=== PATIENT | female | born 1970 | race African-American/Black ===

== ENCOUNTER 2016-08-29 22:16 | Observation (INO) | payer BC ==
[2016-08-29] MEDS ORDERED: ONDANSETRON HCL IV 4 MG/2 ML VIAL IVP ONE (22:44)
[2016-08-29] MEDS ORDERED: MORPHINE SULFATE 5 MG/ML PFS IVP ONE (22:44)
[2016-08-29] MEDS ORDERED: 0.9 % SODIUM CHLORIDE 1000ML 1,000 ML IV SCH (22:45)
--- NOTE | 2016-08-29 22:49 | Emergency Department Record ---
History of Present Illness - General Chief complaint: Pain Stated complaint: BRUISED RIBS Time Seen by Provider: 08/29/16 22:43 Source: Patient Mode of Arrival: Ambulatory Limitations: No limitations - History of Present Illness Initial comments: 46 yo female presents to ED with a CC of left sided "rib pain" that began last night. Patient believes that she "bruised her rib", but denies any injury. Patient denies fevers, chills, or cough symptoms. Patient does report recent left foot surgery 1 weeks ago, denies calf pain or swelling. Patient was seen by both [facility] and PCP today, diagnosed with shingles and possible bruised rib. Patient denies health problems at her baseline. Onset/Timin -: Days(s) Location: Left, Other Severity scale (1-10): 9 Quality: Sharp Consistency: Intermittent Worsens with: Exertion, Walking - Related Data Home Medications Medication Instructions Recorded Confirmed Last Taken Ibuprofen [Motrin 600Mg] 600 mg PO Q6H 08/29/16 08/29/16 08/29/16 19:00 Lisinopril/Hydrochlorothiazide 1 each PO DAILY 08/29/16 08/30/16 1 Day Ago [Lisinopril-Hctz 20-25 mg Tab] Phentermine HCl [Adipex-P] 37.5 mg PO DAILY 08/29/16 08/30/16 5 Days Ago 37.5mg Allergies Allergy/AdvReac Type Severity Reaction Status Date / Time No Known Drug Allergies Allergy Verified 08/29/16 22:41 Travel Screening - Travel/Exposure Within Last 30 Days Have you traveled within the last 30 days?: No Review of Systems Constitutional: Denies: Chills, Fever, Malaise, Night sweats Eyes: Denies: Eye discharge, Eye pain ENT: Denies: Congestion, Ear pain, Epistaxis Respiratory: Denies: Cough, Dyspnea Cardiovascular: Reports: Chest pain. Denies: Dyspnea on exertion, Palpitations , Paroxysmal nocturnal dyspnea Endocrine: Denies: Fatigue, Heat or cold intolerance Gastrointestinal: Denies: Abdominal pain, Nausea, Vomiting Genitourinary: Denies: Dysuria, Frequency Musculoskeletal: Denies: Arthralgia, Back pain, Gout, Joint swelling, Neck pain Skin: Denies: Bruising, Change in color, Change in hair/nails Neurological: Denies: Abnormal gait, Confusion, Headache, Seizure Psychiatric: Denies: Anxiety Hematological/Lymphatic: Denies: Anemia, Blood Clots Past Medical History - SOCIAL HISTORY Smoking Status: Never smoker Alcohol Use: None Drug Use: None - RESPIRATORY Hx Respiratory Disorders: No - CARDIOVASCULAR Hx Cardio Disorders: Yes Hx Hypertension: Yes - NEURO Hx Neuro Disorders: No - GI Hx GI Disorders: No - Hx Genitourinary Disorders: No - ENDOCRINE Hx Endocrine Disorders: No - MUSCULOSKELETAL Hx Musculoskeletal Disorders: No - PSYCH Hx Psych Problems: No - HEMATOLOGY/ONCOLOGY Hx Hematology/Oncology Disorders: No Family Medical History Any Significant Family History?: Yes Hx Diabetes: Father, Mother, Brother/Sister Hx Heart Disease: Brother/Sister Hx Kidney Disease: Father Physical Exam - General General Appearance: Alert, Oriented x3, Cooperative, No acute distress Limitations: No limitations - Head Head exam: Atraumatic, Normocephalic, Normal inspection Head exam detail: negative: Abrasion, Contusion, Brasher's sign, General tenderness, Hematoma, Laceration - Eye Eye exam: Normal appearance. negative: Conjunctival injection, Periorbital swelling, Periorbital tenderness, Scleral icterus - ENT Ear exam: negative: Auricular hematoma, Auricular trauma Nasal Exam: negative: Active bleeding, Discharge, Dried blood, Foreign body Mouth exam: negative: Drooling, Laceration, Muffled voice, Tongue elevation - Neck Neck exam: negative: Meningismus, Tenderness - Respiratory Respiratory exam: Normal lung sounds bilaterally, Chest wall tenderness (left lateral ribs), Other (Patient is tender on examination to the left lateral ribs , reports pain with trucal movement and depp inspiration). negative: Rales, Respiratory distress, Rhonchi, Stridor - Cardiovascular Cardiovascular Exam: Regular rate, Normal rhythm, Normal heart sounds - GI/Abdominal GI/Abdominal exam: Soft. negative: Rebound, Rigid, Tenderness - Rectal Rectal exam: Deferred - exam: Deferred - Extremities Extremities exam: Normal inspection. negative: Calf tenderness, Pedal edema, Tenderness - Back Back exam: Reports: Normal inspection. Denies: CVA tenderness (R), CVA tenderness (L) - Neurological Neurological exam: Alert, Normal gait, Oriented X3 - Psychiatric Psychiatric exam: Normal affect, Normal mood - Skin Skin exam: Normal color. negative: Abrasion Type of lesion: negative: abrasion Course Vital Signs 08/29/16 22:22 Temperature 98.1 F Pulse Rate [ 99 H Pulse Ox Probe] Respiratory 20 Rate Blood Pressure 140/109 [Right Arm] Pulse Ox 97 - Reevaluation(s) Reevaluation #1: 08/29/16 22:54 EKG: NSR 82, normal axis, normal intervals T wave inversion III, otherwise no acute ST-T wave changes are present. Reevaluation #2: 08/29/16 23:40 WBC 16.1, labs are otherwise grossly unremarkable for an acute process. Reevaluation #3: 08/30/16 00:38 CT Chest: Small amount pleural effusion, small pericardial effusion, 3.5 cm breast mass vs. cyst. Patient was updated on all results, will admit for 2-D echo in the morning and trend Troponin. Discussed breast lesion with the patient, reports that she [id number] mammography 2 years ago that demonstrated a small cyst, understands the need for repeat mammography to further evaluate her breast lesion. Reevaluation #4: 08/30/16 06:47 Case was discussed with Dr. Velásquez, will accept admission. Medical Decision Making - Lab Data Result diagrams: 08/29/16 23:00 08/29/16 23:00 Disposition Disposition: Admit Clinical Impression: Pericardial effusion, Pleural effusion Chest pain Qualifiers: Chest pain type: unspecified Qualified Code(s): R07.9 - Chest pain, unspecified Leukocytosis Qualifiers: Leukocytosis type: unspecified Qualified Code(s): D72.829 - Elevated white blood cell count, unspecified Disposition: Still a Patient at [facility] Decision to Admit: Admit from ER Decision to Admit Date: 08/30/16 Decision to Admit Time: 00:42 Condition: (1) Good Time of Disposition: 00:42
[2016-08-29 23:08] LABS: BASO % 0.2 % (0-6); EOS % 1.1 % (0-6); HEMATOCRIT 38.8 % (35.0-47.0); HEMOGLOBIN 12.8 gm/dl (11.6-16.0); LYMPH % 14.2 % (16-45); MEAN CELL VOLUME 91.5 fl (81-97); MEAN CORPUSCULAR HEMOGLOBIN 30.2 pg (27-33); MEAN PLATELET VOLUME 10.8 fl (7.4-10.4); MONO % 6.5 % (0-9); PLATELET COUNT 358 K/uL (130-400); RED BLOOD COUNT 4.24 M/uL (3.80-5.40); RED CELL DISTRIBUTION WIDTH 14.2 % (11.5-14.5); WHITE BLOOD COUNT W/O DIFF 16.1 K/uL (4.2-12.2)
[2016-08-29 23:19] LABS: ALB/GLOB RATIO 1.1 (1.1-1.8); ALBUMIN 4.1 gm/dL (3.5-5.0); ALKALINE PHOSPHATASE 85 U/L (38-126); ALT/SGPT 32 U/L (9-52); ANION GAP 16.3 (7-16); AST/SGOT 20 U/L (14-36); BILIRUBIN,TOTAL 0.25 mg/dL (0.2-1.3); BLOOD UREA NITROGEN 21 mg/dL (7-17); CARBON DIOXIDE 28.7 mmol/L (22-30); CREATININE 0.9 mg/dL (0.52-1.04); EST GLOMERULAR FILTRATION RATE > 60 ml/min; GLUCOSE,RANDOM 117 mg/dL (70-110)
[2016-08-29 23:35] LABS: TROPONIN I < 0.012 ng/mL (0.00-0.034)
[2016-08-29] MEDS ORDERED: KETOROLAC 30 MG/ML VIAL IVP ONE (23:47)
[2016-08-30] MEDS ORDERED: MORPHINE SULFATE 5 MG/ML PFS IVP ONE (00:49)
[2016-08-30] MEDS ORDERED: CEFTRIAXONE SODIUM 1 GM in 0.9 % SODIUM CHLORIDE 100ML 100 ML IVPB ONE (00:49)
[2016-08-30] MEDS ORDERED: NAPROXEN 250 MG TABLET PO SCH (00:49)
[2016-08-30] MEDS ORDERED: AZITHROMYCIN 500 MG in 0.9 % SODIUM CHLORIDE 250ML 250 ML IVPB SCH (00:49)
[2016-08-30] MEDS ORDERED: 0.9 % SODIUM CHLORIDE 1000ML 1,000 ML IV PRN (00:49)
[2016-08-30] MEDS ORDERED: MORPHINE SULFATE 5 MG/ML PFS IVP PRN (03:32)
[2016-08-30] MEDS ORDERED: KETOROLAC 30 MG/ML VIAL IVP ONE (08:07)
[2016-08-30] MEDS ORDERED: LORAZEPAM 2 MG/ML VIAL IV ONE (08:11)
[2016-08-30] MEDS ORDERED: LORAZEPAM 2 MG/ML VIAL IV PRN ×2 (08:34→11:20)
[2016-08-30] MEDS ORDERED: 0.9 % SODIUM CHLORIDE 1000ML 1,000 ML IV ONE (08:36)
[2016-08-30 08:45] LABS: BASO % 0.2 % (0-6); EOS % 1.8 % (0-6); GRAN % 76.2 % (47-80); HEMATOCRIT 37.2 % (35.0-47.0); HEMOGLOBIN 12.2 gm/dl (11.6-16.0); MEAN CELL VOLUME 93.5 fl (81-97); MEAN CORPUSCULAR HEMOGLOBIN 30.7 pg (27-33); MEAN CORPUSCULAR HGB CONC 32.8 g/dl (32-36); MEAN PLATELET VOLUME 11.3 fl (7.4-10.4); MONO % 6.8 % (0-9); PLATELET COUNT 307 K/uL (130-400); RED BLOOD COUNT 3.98 M/uL (3.80-5.40); RED CELL DISTRIBUTION WIDTH 14.2 % (11.5-14.5); WHITE BLOOD COUNT W/O DIFF 14.5 K/uL (4.2-12.2)
--- NOTE | 2016-08-30 09:12 | CT ANGIOGRAM REPORT ---
EXAM: CTA OF THE CHEST FOR PE HISTORY: LEFT SIDED CHEST PAIN FOR TWO DAYS, POSSIBLE PE. TECHNIQUE: CTA of the chest was performed following the intravenous administration of 100 ml of Omnipaque 350 as the IV contrast. A preliminary report was provided by [facility]. Comparison: No prior CT or chest x-ray with which to compare. FINDINGS: There is a suboptimal density of the contrast bolus through the pulmonary arterial tree at the time of the scan, particularly in the peripheral pulmonary arteries, but as visualized, no definite PE identified. No thoracic aortic aneurysm or dissection is seen. There is a small left pleural effusion with some minor streaky atelectasis or infiltrate in the left base. There is also a small amount of pericardial fluid. No hilar or mediastinal adenopathy identified. There is some asymmetry in the distribution of parenchymal density within the breasts. There is questionably an approximately 2.8 cm mass within the left breast. A somewhat similar appearance is seen in the right breast measuring about 2.2 cm. This may just represent asymmetric, but otherwise unremarkable breast parenchyma, but correlation with current mammography as well as physical exam is suggested. No pneumothorax is evident. No definite pulmonary mass evident. IMPRESSION: 1. NO DEFINITE PE IDENTIFIED. 2. SMALL LEFT PLEURAL EFFUSION WITH SOME MINOR STREAKY ATELECTASIS OR INFILTRATE IN THE LEFT BASE. 3. SMALL AMOUNT OF PERICARDIAL FLUID. 4. MILD ASYMMETRY IN THE BREAST PARENCHYMA OF QUESTIONABLE SIGNIFICANCE. CORRELATION WITH PHYSICAL EXAM AND FOLLOW-UP MAMMOGRAPHY WOULD PROBABLY BE USEFUL. JOB NUMBER: [id number] [facility]
[2016-08-30] MEDS: HYDROCHLOROTHIAZIDE 25 MG TABLET PO SCH (09:44)
[2016-08-30] MEDS: LISINOPRIL 20 MG TABLET PO SCH (09:45)
[2016-08-30] MEDS: ENOXAPARIN 40 MG/0.4 ML SYR SQ SCH (09:46)
--- NOTE | 2016-08-30 10:04 | History and Physical Report ---
CHIEF COMPLAINT: Left sided chest pain, worse with movement and inspiration. HISTORY OF PRESENT ILLNESS: This 46-year-old female states that she developed left sided chest pain which started on Monday. She thought she was twisting to get out of bed and hurt her side. The pain progressively got worse where it was intolerable which she felt on Monday. She could not take a deep breath. She rolled over and it spasmed up. She called the ambulance, the ambulance took her to [facility], they did an EKG, but it was so busy the took her I assume AMA out of [facility] Emergency Department to our Emergency Department for evaluation. She was evaluated by Dr. Gamboa and admitted to the hospital for serial cardiac enzymes, serial EKG's , and he did a CTA in the Emergency Department which showed a small pericardial effusion, a small left pleural effusion and a possible small cyst or mass in the left breast at 3.5 mm. The radiologist recommended a mammogram as an outpatient. This patient stated that she thought the pain was a strain or from twisting to get out of bed, she is overweight. Normally she walks around very well according to the without any problems moving. She tried a heating pad the heating pad made her skin red, but did not blister her skin. She thought maybe she had a slight burn there. She went to the Urgent Care on Monday morning in [facility], told that possibly the beginning of shingles, however, the patient felt that was from the heating pad. The red spot is currently gone right now. The patient then went to her family doctor, Dr. Tina Tim the same day at 1:45 Monday and the family doctor felt she sprained her ribs and gave her Naprosyn and recommend only using [place] at night to sleep. She had Virden for a foot surgery that was done in April of 2016 left foot, left over Virden. 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 Currently when she tries to twist to get out of bed or to sit up for me to listen to her lungs , it is very painful. When she takes a breath it is very painful. Her was in the room, Jose, her sone and [id number] and grandson during my examination. Sowmya was my public aid eligibility assistant with doing the breast exam. The EKG was done at [facility] and our EKG was also done which showed no acute ST-T wave change and her Troponin I was negative. She has had two Troponin I's since she has been in the hospital which were both negative. PAST MEDICAL HISTORY: Hypertension. PAST SURGICAL HISTORY: Left foot surgery April of 2016, hysterectomy and a C- Section. MEDICATIONS ON ADMISSION: Her family doctor wrote a prescription of Naprosyn 550 mg twice a day, sent it to [email or web address] in [place], however, she has not filled that yet. She was taking Motrin at home 600 mg three times a day. She uses Lisinopril/Hydrochlorothiazide 20/25 one a day, Adipex-P 37.5 mg daily to try to lose weight, and Motrin 600 mg every six hours. ALLERGIES: No known drug allergies. FAMILY/PSYCHOSOCIAL HISTORY: Diabetes with father, mother, brother and sister. Heart disease with both and sister. Father has kidney disease. Patient has never smoked or does not drink alcohol or use drugs. REVIEW OF SYSTEMS: HEENT: She states maybe she had a little congestion, not much and a little bit of a cough, but not much. Not blowing her nose. No sore throat or ear pains. Denies any headaches. Cardiovascular: No previous cardiac disease. She is short of breath and has some chest pain. Respiratory: See chief complaint. When she takes a breath it hurts on her left side. No hemoptysis. Mild cough. No smoking history. Gastrointestinal: No nausea, vomiting, diarrhea, black stools or bloody stools. Genitourinary: No dysuria, hematuria, frequency or burning on urination. Musculoskeletal: See chief complaint. There is pain in the left chest wall area. Neurologic: No CVA, paralysis, or paresthesias. Gynecological: She has had a hysterectomy. She had a CAT scan showing a possible lump in her left breast, found in our Emergency Room when we did the CTA. Endocrine: No diabetes or thyroid disease. Integument: No rash, ulcers, change in moles or yellow skin. PHYSICAL EXAMINATION: Height is 5'2", weight is 234 pounds, temperature is 97.4 , pulse is 88, blood pressure is 113/58, respiratory rate is 20 on two liters of nasal cannula. She does not use oxygen at home. HEENT: Pupils are equal, round and reactive to light and accommodation. Extraocular muscles are intact. Throat is clear. Nose is clear. Tympanic membranes are jones. NECK: Supple. No jugular venous distention. No hepatojugular reflex. No carotid bruits. Thyroid is smooth. CARDIOVASCULAR: Regular rate and rhythm without murmurs, clicks, rubs or gallops. RESPIRATORY: Decreased breath sounds bilaterally because of the left chest wall pain, but breath sounds were clear. ABDOMEN: Soft, nontender. No hepatosplenomegaly. No masses. No tenderness on palpation. Bowel sounds are present. No bruits. EXTREMITIES: No pitting edema. No cyanosis. No clubbing. Full range of motion. Peripheral pulses are good. BREASTS: Breast exam with Sowmya standing by. No masses palpated on either breast. GYNECOLOGICAL: Deferred. RECTAL: Deferred. GENITALIA: Normal female genitalia. NEUROLOGICAL: Cranial nerves II through XII intact. No gross defects. Sensation normal. Strength normal. Deep tendon reflexes are equal bilaterally. Babinski's negative. MENTAL STATUS: Alert and oriented times three. IMPRESSION: 1. CHEST PAIN LEFT SIDED, WORSE WITH TWISTING AND MOVING. 2. PERICARDIAL EFFUSION SMALL SEEN BY CT SCAN. WE WILL GET AN ECHOCARDIOGRAM. 3. LEFT LUNG EFFUSION SMALL. 4. SPOT ON THE LEFT BREAST SEEN BY CT SCAN 3.5 CM, UNABLE TO FEEL A LUMP ON BREAST EXAM. THIS WILL BE WORKED UP AN OUTPATIENT. PLAN: Echocardiogram, consult with Dr. Bello, Toradol 30 mg IV and then 15 mg q eight hours, Ativan 1 mg IV every six hours prn. Manohar Velásquez D.O. Date & Time JOB NUMBER: [id number] MTDD
[2016-08-30 10:17] LABS: ERYTHROCYTE SEDIMENTATION RATE 55 mm/hr (0-20)
[2016-08-30] MEDS ORDERED: MAGNESIUM HYDROXIDE 30 ML UDC PO PRN (12:26)
[2016-08-30] MEDS: DOCUSATE SODIUM 100 MG CAPSULE PO SCH ×2 (13:46→21:46)
[2016-08-30] MEDS: KETOROLAC 30 MG/ML VIAL IVP PRN (17:41)
[2016-08-30] MEDS: AZITHROMYCIN 500 MG TABLET PO SCH (17:41)
[2016-08-30] MEDS: 0.9 % SODIUM CHLORIDE 10ML SYR IVP SCH ×2 (17:50→21:46)
[2016-08-31] MEDS: KETOROLAC 30 MG/ML VIAL IVP PRN (01:10)
--- NOTE | 2016-08-31 09:07 | Discharge Note ---
Discharge Note - Date Date of Discharge Note: 08/31/16 Disposition: Home, Self-Care Condition: (1) Good Instructions: Chest Pain (DC), Pleural Effusion (DC) Additional Instructions: follow up with in 5-7 days motrin 600 mg three times a day azithromycin 500 mg daily for 10 days norco 5mg every 6 hours PRN use as little as possible don't use naprosyn with the motrin cardiology felt motrin would work better for the pleursy and small pericardial effusion. stop naprosyn she never picked it up at the drug store Prescriptions: Ibuprofen [Motrin 600Mg] 600 mg PO Q8H #30 tablet Ibuprofen [Motrin 600Mg] 600 mg PO Q6H #30 tablet Hydrocodone/Acetaminophen [[place] 5mg/325mg] 1 tab PO Q6H PRN #30 tab PRN Reason: Pain - General Azithromycin [Zithromax] 500 mg PO DAILY #10 tab Referrals: Manohar Velásquez D.O. [DOCTOR OF OSTEOPATH] - BRANDI HERRERA [Primary Care Provider] - PRACHI ESCOBAR M.D. [MEDICAL DOCTOR] - Forms: Patient Portal Access
[2016-08-31] MEDS: 0.9 % SODIUM CHLORIDE 10ML SYR IVP SCH (09:44)
[2016-08-31] MEDS: ENOXAPARIN 40 MG/0.4 ML SYR SQ SCH (09:45)
[2016-08-31] MEDS: IBUPROFEN 600 MG TABLET PO SCH ×2 (09:45→16:36)
[2016-08-31] MEDS: LISINOPRIL 20 MG TABLET PO SCH (09:46)
[2016-08-31] MEDS: HYDROCHLOROTHIAZIDE 25 MG TABLET PO SCH (09:46)
[2016-08-31] MEDS: AZITHROMYCIN 500 MG TABLET PO SCH (09:46)
[2016-08-31] MEDS: DOCUSATE SODIUM 100 MG CAPSULE PO SCH (10:49)
--- NOTE | 2016-08-31 13:59 | Discharge Summary ---
DATE OF DISCHARGE: 08/31/2016 at about 9:10 a.m. DISCHARGE DIAGNOSES: 1. Pleurisy. 2. Small paracardial effusion. 3. Small pleural effusion on the left side. 4. Left-sided chest wall pain. 5. Bronchitis. 6. Abnormality on the CT scan showing a left breast possible lesion measuring 3.5 cm. The radiologist recommends an outpatient mammogram. This could be just the density of her tissue. This needs to be worked up as an outpatient. Recommend the patient talk with her primary physician about this, Dr. Tim. I was unable to feel a lump on the breast examination in the hospital. ATTENDING PHYSICIAN: Manohar Velásquez D.O. REASON FOR HOSPITALIZATION: Left-sided chest wall pain. Worse with movement and inspiration. HISTORY OF THE PRESENT ILLNESS: This 46-year-old female states she developed left-sided chest pain which started on Monday, the day before admission. She went to the urgent care and was told that she possibly had the beginning of shingles because she used a heating pad on the left side of her chest which was a slightly reddened area from the heating pad. That has gone away without any blistering. The [facility] doctor felt it might be a burn or early shingles. I think the patient felt it was more a reaction to the heating pad. She then went to her family physician, Dr. Tim. She went to her family doctor who felt she strained her back and recommended Naprosyn and [place]. She never picked that up. After she went home from the family doctor she developed a severe left-sided chest pain. It was so severe she felt she had to call the ambulance. She thought she was having a heart attack. She went in by ambulance to [facility]'s emergency department. She had an EKG done but was sitting there a long time because it was so busy. Her took her out of the emergency department I assume against medical advice and brought her to the [facility] emergency department. She was evaluated by Dr. Gamboa who did a CTA. This was negative for pulmonary embolus. It did show a small paracardial effusion and also a small pleural effusion. She was placed in the hospital for serial EKGs, serial cardiac enzymes, and a cardiology consult. The patient was given Toradol and morphine for pain control. SIGNIFICANT FINDINGS FROM EXAMINATION: The CTA of the chest was initially read by the [facility]. The initial reading showed mild cardiomegaly, small left paracardial effusion, small left pleural effusion. Questionable left breast mass or breast cyst which measures about 3.5 cm. There is asymmetry as compared to the right side. A mammogram was recommended. The re- read by our radiologist showed a small left pleural effusion; small, minor streaky atelectasis or infiltrate in the left base; a small amount of pericardial fluid. No definite pulmonary embolus seen. Mild asymmetry of the breast parenchyma of questionable significance. Correlate with physical examination. Follow up mammogram would probably be useful. The radiologist does question whether there might be an approximately 2.8 cm mass in the left breast. A mammogram is recommended. The patient states that her last mammogram was about two years ago and it was normal. LABORATORY DATA: White blood cell count initially was 16,100, hemoglobin was 12.8. Repeat hemoglobin was 14.5 the next day. Her sedimentation rate was 55 and her CRP was 6.0 which are both elevated. Electrolytes were normal. Cardiac enzymes times two, troponin-I was negative. BUN was 21 and creatinine was 0.9. Glucose was 117, but that was a non-fasting glucose. DIAGNOSTIC DATA: Echocardiogram will be done on the day of discharge just to make sure there are no significant findings by echocardiogram. EKG showed normal sinus rhythm. No acute ST T-wave changes. No signs of pericarditis. CONSULTATION: Cardiology consult with Dr. Josi Bello at [facility] who felt that she has pleurisy and more musculoskeletal pain. He felt that as far as her cardiac status, the pericardial effusion is small. He does not see any signs of pericarditis by EKG. However, the inflammatory markers are up. Will follow through with an echocardiogram in case there are any further problems. He said to follow up with him as an outpatient if necessary after evaluation by her family doctor. HOSPITAL COURSE: The patient gradually got better and is walking around the room. However, she is still very painful on the left side of the chest if she coughs. Also if she moves a certain way it will be very painful. CONDITION AT DISCHARGE: Improved but her left chest wall is still painful. DISCHARGE INSTRUCTIONS: Follow up with Dr. Tim in five to seven days or sooner if worse. Azithromycin 500 mg q. daily for ten days. Motrin 600 mg t.i.d. for ten days. [place] 5.0 mg q. six hours p.r.n. but try to only take it at night and as little as possible because it can cause constipation. Continue lisinopril/HCT one a day. Continue Adipex-P one a day. Can use outpatient Colace 100 mg daily and Milk of Magnesia [id number] 30 mL p.r.n. constipation. Manohar Velásquez D.O. Date Time JOB NUMBER: [id number] cc: Tina Tim M.D. MTDWilliam
--- NOTE | 2016-08-31 15:45 | Medical Records Consult ---
CONSULTATION DATE: 08/30/2016 REFERRING PHYSICIAN: Manohar Velásquez D.O. CONSULTING PHYSICIAN: Elier Bello M.D. REASON FOR CONSULTATION: Chest pain. HISTORY OF PRESENTING ILLNESS: The patient is a 46-year-old female with a history of hypertension. She presented to the emergency department complaining of chest pain which started Monday. The patient describes the chest pain as sharp pain on the left side which is aggravated by deep breathing as well as with movement. She denies any fever or chills. She denies any cough. She denies any pedal edema, orthopnea, or paroxysmal nocturnal dyspnea. She denies any EKG. The patient's serial cardiac enzymes have been within normal limits. The CT of the chest in the emergency department showed no evidence of embolism. It showed a small pericardial effusion and a small left pleural effusion. Her white count was elevated at 16,000 as well. The patient was given Toradol 15 mg this morning which improved the chest pain somewhat. However, even now when she moves or takes a deep breath, it causes pain which is about 8 out of 10 in severity. PAST MEDICAL HISTORY: Her past medical history is significant for hypertension. PAST SURGICAL HISTORY: Her past surgical history is significant for a hysterectomy, section, as well as left foot surgery in April of 2016. MEDICATIONS: Her home medications include: Lisinopril/hydrochlorothiazide 20/ 25 mg daily, Adipex-P 37.5 mg daily, and Motrin 600 mg p.r.n. FAMILY HISTORY: Several first-degree relatives have diabetes including her father, mother, brother, and sister. Her father also has renal insufficiency. SOCIAL HISTORY: The patient is and lives with her . She denies any tobacco use. She denies any illicit drug use. REVIEW OF SYSTEMS: She denies any sleep or appetite changes. She denies any night sweats, cough, or pedal edema. She denies any anxiety or depression. PHYSICAL EXAMINATION: General: The patient is an obese 45-year-old female who is not in any apparent distress. She is alert and oriented x 3. Vital Signs: She has a blood pressure of 113/58 mmHg, a heart rate of 88 beats per minute, a respiratory rate of 20 per minute. HEENT: On examination her is normocephalic, atraumatic. The pupils are equal and reactive to light. The extraocular muscles are intact. Neck: The neck is supple. Cardiovascular: On cardiovascular examination she has normal S1 and S2. There is no pericardial or pleural rub. Respiratory: Examination reveals that the lungs are clear to auscultation bilaterally. Abdomen: The abdomen is soft. Neurological: Examination is nonfocal. Chest: On palpation the patient has tenderness to the chest wall on the left side. LABORATORY DATA: Our laboratory data shows a white count of 16.1, hemoglobin of 12.8, platelet count is 358. Blood glucose 117, BUN 21, creatinine 0.9, sodium 139, potassium 3.6, chloride 94, C02 28.7. Troponin-I is less than 0.012. AST 20, ALT 32. DIAGNOSTIC DATA: Her ECG done yesterday showed sinus rhythm with subtle ST elevation in the inferior leads with ND depression suggestive of possible pericarditis. ASSESSMENT AND PLAN: 1. Chest pain. The patient's chest pain is very pleuritic in nature. However , it is also musculoskeletal because she has point tenderness on palpation. The fact that she has an elevated white count is also suggestive of an inflammatory process, most likely a pleurisy causing the pleural effusion as well as possibly localized pericarditis causing pericardial effusion. I would recommend starting her on ibuprofen 600 mg p.o. t.i.d. I would also recommend adding a proton pump inhibitor while she is on the nonsteroidal anti- inflammatory drugs. Since she is having excruciating pain, Solu Medrol 125 mg intravenous or prednisone 60 mg p.o. dose can be considered as well. 2. She has an echocardiogram ordered. However, the pericardial effusion was very small, and I do not feel the need for any echocardiography at this point in time. She does not have any signs of tamponade or any electrical alternans on the EKG. If she continues to have chest pain in spite of the two weeks of nonsteroidal anti-inflammatory drugs, she can follow up with us. At that time we can consider doing an echocardiogram and possibly a combination of nonsteroidal anti-inflammatory drugs and colchicine to work on the serosal inflammation. 3. Hypertension. The patient's blood pressure is adequately controlled with the current regimen including lisinopril and hydrochlorothiazide which will be continued. Thank you very much for involving me in the management of this patient. If you have any further questions please do not hesitate to call me. Elier Bello M.D. Date Time JOB NUMBER: [id number] MTDD
== END 2016-08-31 17:45 | disposition home or self-care (01) ==
LOC: ER 22:16 → MEDSURG 08-30 00:55
PROVIDERS: ADMIT Emergency Medicine; ATTEND Emergency Medicine
DX: R09.1 Pleurisy (principal); R07.89 Other chest pain; I10 Essential (primary) hypertension
CPT/HCPCS: 99285 ×2; 96376; 96365; 96366; 96375; 85025 ×2; 85651; 86140; 84484 ×2; 80053; 71275; 94761; 93005 ×2; 93010 ×2; G0378 ×2; Q9967; J1885 ×3; J2405; J2060; J2270 ×2; 99217; 99220; J0456; J1650; J7030; J7050

== ENCOUNTER 2016-10-22 08:15 | Emergency (ER) | payer BC ==
--- NOTE | 2016-10-22 08:29 | Emergency Department Record ---
History of Present Illness - General Chief complaint: ENT Stated complaint: R EAR PAIN Time Seen by Provider: 10/22/16 08:21 Source: Patient Mode of Arrival: Ambulatory Limitations: No limitations - History of Present Illness Initial comments: 46 yo female presents with right ear pain for several weeks. The pain has increased recently. No fevers. No changes in hearing. No drainage of fluid or blood. She denies any trauma. No facial weakness or numbness, no vision changes. No prior ear surgery. The pain has been on and off. No redness, swelling, or blisters. The pain comes and goes. She is not a diabetic. MD complaint: Ear pain Onset/Timin -: Month(s) Location: R ear Severity scale (1-10): 9 Quality: Aching Consistency: Constant Improves with: None Worsens with: None Associated Symptoms: Other - Related Data Home Medications Medication Instructions Recorded Confirmed Last Taken Lisinopril/Hydrochlorothiazide 1 each PO DAILY 08/29/16 10/22/16 10/22/16 [Lisinopril-Hctz 20-25 mg Tab] Phentermine HCl [Adipex-P] 37.5 mg PO DAILY 08/29/16 10/22/16 10/22/16 Previous Rx's Medication Instructions Recorded Docusate Sodium [Colace] 100 mg PO BID cap 08/31/16 Hydrocodone/Acetaminophen [[place] 1 tab PO Q6H PRN #30 tab 08/31/16 5mg/325mg] Ibuprofen [Motrin 600Mg] 600 mg PO Q6H #30 tablet 08/31/16 Ibuprofen [Motrin 600Mg] 600 mg PO Q8H #30 tablet 08/31/16 Amoxicillin 500 mg PO TID #21 capsule 10/22/16 Methylprednisolone [Medrol Dose 4 mg PO DAILY #1 tab.ds.pk 10/22/16 Pack] Allergies Allergy/AdvReac Type Severity Reaction Status Date / Time No Known Drug Allergies Allergy Verified 08/29/16 22:41 Travel Screening - Travel/Exposure Within Last 30 Days Have you traveled within the last 30 days?: No - Travel/Exposure Within Last Year Have you traveled outside the [place] in the last year?: No - Additonal Travel Details Have you been exposed to anyone with a communicable illness?: No - Travel Symptoms Symptom Screening: None Review of Systems Constitutional: Denies: Chills, Fever, Malaise, Weakness Eyes: Denies: Eye discharge, Eye pain, Photophobia, Vision change ENT: Reports: Ear pain. Denies: Congestion, Dental pain, Throat pain Respiratory: Denies: Cough, Dyspnea, Hemoptysis, Stridor, Wheezes Cardiovascular: Denies: Chest pain, Palpitations, Syncope Endocrine: Denies: Fatigue Gastrointestinal: Denies: Abdominal pain, Diarrhea, Nausea, Vomiting Genitourinary: Denies: Dysuria, Urgency Musculoskeletal: Denies: Arthralgia, Back pain, Joint swelling, Myalgia, Neck pain Skin: Denies: Bruising, Change in color, Rash Neurological: Denies: Confusion, Headache, Numbness, Tingling, Tremors, Vertigo , Weakness Psychiatric: Denies: Anxiety Hematological/Lymphatic: Denies: Blood Clots, Easy bleeding, Easy bruising, Swollen glands Past Medical History - SOCIAL HISTORY Smoking Status: Never smoker Alcohol Use: None Drug Use: None - RESPIRATORY Hx Respiratory Disorders: No - CARDIOVASCULAR Hx Cardio Disorders: Yes Hx Hypertension: Yes - NEURO Hx Neuro Disorders: No - GI Hx GI Disorders: No - Hx Genitourinary Disorders: No - ENDOCRINE Hx Endocrine Disorders: No - MUSCULOSKELETAL Hx Musculoskeletal Disorders: No - PSYCH Hx Psych Problems: No - HEMATOLOGY/ONCOLOGY Hx Hematology/Oncology Disorders: No Family Medical History Any Significant Family History?: No Hx Diabetes: Father, Mother, Brother/Sister Hx Heart Disease: Brother/Sister Hx Kidney Disease: Father Physical Exam - General General Appearance: Alert, Oriented x3, Cooperative, No acute distress Limitations: No limitations - Head Head exam: Atraumatic, Normal inspection - Eye Eye exam: Normal appearance, PERRL, EOMI. negative: Conjunctival injection, Periorbital swelling, Periorbital tenderness - ENT ENT exam: Normal exam, Mucous membranes moist, Normal external ear exam, Normal orophraynx, TM's normal bilaterally. negative: Mucous membranes dry Ear exam: Normal external inspection, External canal tenderness, Other (no blisters, no swelling, mild tenderness at site of ear ring hole but no pus or redness). negative: Auricular hematoma, Auricular trauma Nasal Exam: Normal inspection. negative: Discharge, Sinus tenderness Mouth exam: Normal external inspection, Tongue normal Teeth exam: Normal inspection. negative: Dental caries Throat exam: Normal inspection. negative: Tonsillar erythema, Tonsillar exudate - Neck Neck exam: Normal inspection, Full ROM. negative: Lymphadenopathy, Meningismus , Tenderness, Thyromegaly - Respiratory Respiratory exam: Normal lung sounds bilaterally. negative: Respiratory distress - Cardiovascular Cardiovascular Exam: Regular rate, Normal rhythm, Normal heart sounds - Rectal Rectal exam: Deferred - exam: Deferred - Extremities Extremities exam: negative: Pedal edema - Neurological Neurological exam: Alert, CN II-XII intact, Normal gait, Oriented X3. negative : Altered, Motor sensory deficit - Psychiatric Psychiatric exam: Normal affect, Normal mood - Skin Skin exam: Dry, Intact, Normal color, Warm Course Vital Signs 10/22/16 08:16 Temperature 98.2 F Pulse Rate 91 H Respiratory 16 Rate Blood Pressure 130/85 Pulse Ox 100 - Reevaluation(s) Reevaluation #1: The patient was seen and examined The TM is normal. She has some tenderness posterior and inferior but no swelling or redness. No fever. No wax I discussed treated with anti inflammatory and antibiotic at this time, following up with PCP for a recheck, if not better request ENT referral. 10/22/16 08:30 Disposition Disposition: Discharge Clinical Impression: Otalgia of right ear Instructions: Earache (ED) Additional Instructions: Call your doctor for a recheck this coming week Return if you have fever, drainage, redness, changes in your hearing Prescriptions: Amoxicillin 500 mg PO TID #21 capsule Methylprednisolone [Medrol Dose Pack] 4 mg PO DAILY #1 tab.ds.pk Forms: Patient Portal Access Time of Disposition: 08:32
== END 2016-10-22 08:41 | disposition home or self-care (01) ==
LOC: ER 08:15
DX: H92.01 Otalgia, right ear (principal)
CPT/HCPCS: 99282

== ENCOUNTER 2017-01-04 11:03 | Emergency (ER) | payer BC ==
--- NOTE | 2017-01-04 11:24 | Emergency Department Record ---
History of Present Illness - General Chief complaint: ENT Stated complaint: SORE THROAT Time Seen by Provider: 01/04/17 11:16 Source: Patient, RN notes reviewed Mode of Arrival: Ambulatory - History of Present Illness Initial comments: sore throat started yesterday and no cough and she thinks she had mono as a child. complaint: Sore throat Onset/Timin -: Days(s) Location: Throat Severity: Severe Severity scale (1-10): 10 Quality: Aching, Burning Consistency: Constant Improves with: None Worsens with: Swallowing Associated Symptoms: Sore throat - Related Data Home Medications Medication Instructions Recorded Confirmed Last Taken Lisinopril/Hydrochlorothiazide 1 each PO DAILY 08/29/16 01/04/17 10/22/16 [Lisinopril-Hctz 20-25 mg Tab] Previous Rx's Medication Instructions Recorded Cephalexin [Keflex] 500 mg PO QID #40 cap 01/04/17 Allergies Allergy/AdvReac Type Severity Reaction Status Date / Time No Known Drug Allergies Allergy Verified 08/29/16 22:41 Travel Screening - Travel/Exposure Within Last 30 Days Have you traveled within the last 30 days?: No Review of Systems Reviewed: No additional complaints except as noted below Constitutional: Reports: As per HPI. Denies: Chills, Fever, Malaise, Night sweats, Weakness, Weight change Eyes: Reports: As per HPI. Denies: Eye discharge, Eye pain, Photophobia, Vision change ENT: Reports: As per HPI, Throat pain. Denies: Congestion, Dental pain, Ear pain, Epistaxis, Hearing loss Respiratory: Reports: As per HPI. Denies: Cough, Dyspnea, Hemoptysis, Stridor, Wheezes Cardiovascular: Reports: As per HPI. Denies: Arrhythmia, Chest pain, Dyspnea on exertion, Edema, Murmurs, Orthopnea, Palpitations, Paroxysmal nocturnal dyspnea, Rheumatic Fever, Syncope Endocrine: Reports: As per HPI. Denies: Fatigue, Heat or cold intolerance, Polydipsia, Polyuria Gastrointestinal: Reports: As per HPI. Denies: Abdominal pain, Constipation, Diarrhea, Hematemesis, Hematochezia, Melena, Nausea, Vomiting Genitourinary: Reports: As per HPI. Denies: Abnormal menses, Discharge, Dyspareunia, Dysuria, Frequency, Hematuria, Incontinence, Retention, Urgency Musculoskeletal: Reports: As per HPI. Denies: Arthralgia, Back pain, Gout, Joint swelling, Myalgia, Neck pain Skin: Reports: As per HPI. Denies: Bruising, Change in color, Change in hair/ nails, Lesions, Pruritus, Rash Neurological: Reports: As per HPI, Headache. Denies: Abnormal gait, Confusion, Numbness, Paresthesias, Seizure, Tingling, Tremors, Vertigo, Weakness Psychiatric: Reports: As per HPI. Denies: Anxiety, Auditory hallucinations, Depression, Homicidal thoughts, Suicidal thoughts, Visual hallucinations Hematological/Lymphatic: Reports: As per HPI. Denies: Anemia, Blood Clots, Easy bleeding, Easy bruising, Swollen glands Past Medical History - SOCIAL HISTORY Smoking Status: Never smoker Alcohol Use: None Drug Use: None - RESPIRATORY Hx Respiratory Disorders: No - CARDIOVASCULAR Hx Cardio Disorders: Yes Hx Hypertension: Yes - NEURO Hx Neuro Disorders: No - GI Hx GI Disorders: No - Hx Genitourinary Disorders: No - ENDOCRINE Hx Endocrine Disorders: No - MUSCULOSKELETAL Hx Musculoskeletal Disorders: No - PSYCH Hx Psych Problems: No - HEMATOLOGY/ONCOLOGY Hx Hematology/Oncology Disorders: No Family Medical History Any Significant Family History?: Yes Hx Diabetes: Father, Mother, Brother/Sister Hx Heart Disease: Brother/Sister Hx Kidney Disease: Father Physical Exam - General General Appearance: Alert, Oriented x3, Cooperative, No acute distress - Head Head exam: Normal inspection - Eye Eye exam: Normal appearance, PERRL Pupils: Normal accommodation - ENT ENT exam: Normal exam, Mucous membranes moist, Normal external ear exam, Normal orophraynx, TM's normal bilaterally Ear exam: Normal external inspection. negative: External canal tenderness Nasal Exam: Normal inspection. negative: Discharge, Sinus tenderness Mouth exam: Normal external inspection, Tongue normal Teeth exam: Normal inspection. negative: Dental caries Throat exam: Tonsillar exudate (white coating of both tonsils). negative: Tonsillar erythema - Neck Neck exam: Normal inspection, Full ROM, Lymphadenopathy. negative: Meningismus , Tenderness - Respiratory Respiratory exam: Normal lung sounds bilaterally. negative: Respiratory distress - Cardiovascular Cardiovascular Exam: Regular rate, Normal rhythm, Normal heart sounds - GI/Abdominal GI/Abdominal exam: Soft, Normal bowel sounds. negative: Tenderness - Rectal Rectal exam: Deferred - exam: Deferred - Extremities Extremities exam: Normal inspection, Full ROM, Normal capillary refill. negative: Tenderness - Back Back exam: Reports: Normal inspection, Full ROM. Denies: Muscle spasm, Rash noted, Tenderness - Neurological Neurological exam: Alert, Normal gait, Oriented X3, Reflexes normal - Psychiatric Psychiatric exam: Normal affect, Normal mood - Skin Skin exam: Dry, Intact, Normal color, Warm Course Vital Signs 01/04/17 11:06 Temperature 98.1 F Pulse Rate 105 H Respiratory 20 Rate Blood Pressure 148/108 Pulse Ox 100 Patient swallowing liquids OK Medical Decision Making - Data Complexity MDM Data: Labs Ordered and/or Reviewed (mono neg strep neg) - Lab Data Result diagrams: 01/04/17 11:37 Disposition Clinical Impression: Pharyngitis Qualifiers: Pharyngitis/tonsillitis etiology: unspecified etiology Qualified Code(s): J02.9 - Acute pharyngitis, unspecified Disposition: Home, Self-Care Condition: (1) Good Instructions: Pharyngitis (ED) Additional Instructions: follow up with family in 2-5 days tylenol or motrin for pain and sore throat lozenges Prescriptions: Cephalexin [Keflex] 500 mg PO QID #40 cap Forms: Patient Portal Access Time of Disposition: 11:52
[2017-01-04 11:45] LABS: BASO % 0.3 % (0-6); EOS % 1.3 % (0-6); GRAN % 78.5 % (47-80); HEMATOCRIT 40.5 % (35.0-47.0); HEMOGLOBIN 13.1 gm/dl (11.6-16.0); LYMPH % 15.2 % (16-45); MEAN CELL VOLUME 93.3 fl (81-97); MEAN CORPUSCULAR HEMOGLOBIN 30.2 pg (27-33); MEAN CORPUSCULAR HGB CONC 32.3 g/dl (32-36); MEAN PLATELET VOLUME 10.7 fl (7.4-10.4); MONO % 4.7 % (0-9); PLATELET COUNT 298 K/uL (130-400); RED BLOOD COUNT 4.34 M/uL (3.80-5.40); RED CELL DISTRIBUTION WIDTH 13.5 % (11.5-14.5); WHITE BLOOD COUNT W/O DIFF 13.5 K/uL (4.2-12.2)
== END 2017-01-04 12:08 | disposition home or self-care (01) ==
LOC: ER 11:03
DX: J02.9 Acute pharyngitis, unspecified (principal); R51 Headache
CPT/HCPCS: 85025; 86308; 87880; 99283